=== PATIENT | female | born 1950 | race Caucasian/White ===

== ENCOUNTER 2018-10-22 11:21 | Outpatient (CLI) | payer OTHER ==
[2018-10-22 11:42] LABS: CREATININE 0.9 mg/dL (0.4-1.0)
== END 2018-10-22 11:22 | disposition home or self-care (01) ==
LOC: LAB 11:21
PROVIDERS: ATTEND Psychiatry & Neurology Neurology
DX: Z98.890 Other specified postprocedural states (principal); Z86.018 Personal history of other benign neoplasm
CPT/HCPCS: 36415; 82565